=== PATIENT | male | born 1955 | race Caucasian/White ===

== ENCOUNTER → 2016-08-20 | Outpatient (CLI) | payer MEDICARE, SELFPAY ==
[~2016-08-20] MED LIST: ACETAMINOPHEN PO; ALBUTEROL17 G1 IH; ALTACE PO; ALTACE5 M1 PO; ASPIRIN PO; ASPIRIN81 M1 PO; ASPIRIN81 M2 PO; AUGMENTIN PO; BYSTOLIC PO; BYSTOLIC10 MG PO; CARVEDILOL6.25 MG PO; CLOPIDOGREL BIS75 MG PO; COMBIVENT INH14.7 GM INH; FISH OIL 1,0001 CAP PO; FLAGYL PO; FLEXERIL10 M1 PO; FLOMAX0.4 M1 PO; FLOMAX0.4 MG PO; IBUPROFEN600 MG PO; LEVAQUIN PO; LOSARTAN POTASS50 MG PO; LOSARTAN-HCTZ1 EAC3 PO; LOVAZA1 G PO; MEDROL PO; MUCINEX DM1 TAB.SR . PO; NICOTINE T1 PATCH .2 TOP; NORVASC PO; PERCOCET 5-3251 TAB PO; PLAVIX PO; PREDNISONE PO; ZITHROMAX PO; ZOCOR PO; [UNRECOGNIZED DRUG - REMARK]
--- NOTE | ~2016-08-20 | MR114 ---
[facility] A Service of [facility] RADIOLOGY TEXT RESULTS PATIENT: HAYDE PAIGE LOCATION: [facility] : 55 UNIT #: [id number] AGE: [address]: Darell Shin MD SEX: M ORDER DR: [id number] [facility] [address] [place], [place] [address] [id number] O MR#: [id number] Acc #: [id number] NAME: HAYDE PAIGE : 1955 SEX: M STUDY DATE/TIME: 08/20/2016 9:37 UNIT: [facility] ROOM: STUDY DESCRIPTION: MR MRA Abdomen W Contrast Attending Physician: Darell Shin M.D. Referring Physician: Darell Shin M.D. Ordering Physician: Darell Shin M.D. Primary Care Physician: Darell Shin M.D. MRI CENTER REPORT This report is preliminary unless electronic signature is present. EXAM MRA abdomen with and without contrast, 08/20/2016. PROCEDURE Axial [id number] and coronally acquired gadolinium bolus abdominal MRA with three-dimensional reformats. COMPARISON MRI abdomen images dated 04/23/2010. CLINICAL HISTORY Persistent hypertension for 3 years. FINDINGS The study is not tailored for evaluation of the abdominal viscera but the adjacent abdominal viscera appear unremarkable. There is slight atheromatous irregularity in the abdominal aorta but no aneurysm or stenosis. Both common and internal and external iliac vessels are partially seen and normal. The celiac axis, superior mesenteric artery and inferior mesenteric artery are all normally patent. There are single renal arteries bilaterally and these are widely patent. There is no aneurysm, stenosis or vessel irregularity. Limited postcontrast images of the abdominal viscera are also normal. IMPRESSION 1. Normal MRA of the abdomen. Slight atheromatous irregularity in the aorta without aneurysm or stenosis. 2. Widely patent single bilateral renal arteries without aneurysm or stenosis. [facility] A Service of [facility] RADIOLOGY TEXT RESULTS PATIENT: HAYDE PAIGE LOCATION: [facility] : 55 UNIT #: [id number] AGE: [address]: Darell Shin MD SEX: M ORDER DR: Dictated by... Altaf Forrest M.D. THIS IS AN ELECTRONICALLY VERIFIED REPORT Altaf Forrest M.D. at 08/26/2016 10:34 AM TEV/bd TD: 08/21/2016 14:24 JOB #: [id number] MRI CENTER REPORT Page 1 of 1 COPY
== END | disposition home or self-care (01) ==
LOC: CMRI 08:03
DX: I12.9 Hypertensive chronic kidney disease with stage 1 through stage 4 chronic kidney disease, or unspecified chronic kidney disease (principal); N18.9 Chronic kidney disease, unspecified; I70.0 Atherosclerosis of aorta
CPT/HCPCS: A9577; C8900